=== PATIENT | female | born 1970 | race Caucasian/White ===

== ENCOUNTER 2017-07-19 08:45 | Emergency (ER) | END 2017-07-19 11:25 | disposition home or self-care (01) ==

== ENCOUNTER 2018-09-21 15:43 | Emergency (ER) | payer OTHER ==
[~2018-09-21] VITALS: Wt 83.9 kg
[~2018-09-21 15:43] MED LIST: ACET500C5 PO; BENZ-6 PO; ESOM20CA PO; SODI126M NASAL
[2018-09-21] MEDS ORDERED: KETOROLAC 30 MG INJ IV STA (16:59)
[2018-09-21 18:14] VITALS: BP 146/85; PULSE 90; RESP 18
--- NOTE | 2018-09-21 19:32 | ERD ---
ER Documentation Chief Complaint Chief Complaint JENKINS, anxiety today. worried about daughter w flu-like sx HPI This is a 48-year-old female that has no past medical history. Indicated that she is feeling very anxious and nervous after she received a call from her daughter who stated she was having a difficult time breathing. She medially brought her to the emergency department to be further evaluated. When the patient was here she stated she developed a posterior-like headache. She felt lightheaded and dizzy. She did not express any syncope or near syncope episode. She was also expressing palpitations but stated she had no chest pain or pressure. She denies any recent travel. She denies any neck pain. She states she received annual physical exams by her primary care physician and has no history of hypertension. She does not smoke tobacco. ROS All systems reviewed and are negative except as per history of present illness. Medications Home Meds Discontinued Scripts Benzonatate* (Tessalon Perle*) 100 Mg Capsule, 100 MG PO Q8H PRN for COUGH, #30 CAP Prov:MEKA BROWNE. [employer] SERVICE APPRENTICE 07/19/17 Sodium Chloride (Saline Nasal Mist) 126 Ml Mist, 2 SPRAY NASAL Q2H PRN for NASAL CONGESTION, #1 BOTTLE Prov:MEKA BROWNE. [employer]ERAL SERVICE APPRENTICE 07/19/17 Acetaminophen* (Tylophen*) 500 Mg Capsule, 1 CAP PO Q6H PRN for PAIN AND OR ELEVATED TEMP, #20 CAP Prov:MEKA BROWNE. FUNERAL SERVICE APPRENTICE 10/19/15 Esomeprazole Mag Trihydrate (Nexium) 20 Mg Capsule.dr, 20 MG PO DAILY, #14 CAP Prov:CARLOS MEDINA MD 05/22/15 Allergies Allergies: Coded Allergies: No Known Allergy (Unverified , 09/21/18) PMhx/Soc History of Surgery: Yes (GALLBLADDER REMOVED) Anesthesia Reaction: No Hx Neurological Disorder: No Hx Respiratory Disorders: No Hx Cardiac Disorders: No Hx Psychiatric Problems: No Hx Miscellaneous Medical Probl: No Hx Alcohol Use: No Hx Substance Use: No Hx Tobacco Use: No Smoking Status: Never smoker Physical Exam Vitals Vital Signs Date Temp Pulse Resp B/P (MAP) Pulse Ox O2 O2 Flow FiO2 Time Delivery Rate 09/21/18 90 18 146/85 100 Room Air 18:14 (105) 09/21/18 98.9 72 22 194/100 100 16:00 (131) Physical Exam Constitutional:Well-developed. Well-nourished. HEENT:Normocephalic. Atraumatic.Pupils were equal round reactive to light. Moist mucous membranes.No tonsillar exudates. Otoscopy exam shows sharp optic disks and venous pulsations are present Neck: No nuchal rigidity. No lymphadenopathy. No posterior cervical spine tenderness or step-offs. Respiratory: Not using accessory muscles of respiration.Lungs were clear to auscultation bilaterally. No rhonchi. No rales. No wheezing. Cardiovascular: Regular rate regular rhythm.No murmurs. No rubs were appreciated.S1, S2 normal. Distal pulses are palpable 2+ bilaterally. GI: Abdomen was soft. Nontender. Non Distended. No pulsatile abdominal masses or bruits. No rebound. No guarding. Bowel sounds were present and normal. Muscle skeletal: Full range of motion of both the upper and lower extremities bilaterally.Normal muscle tone.No assymetrical calf tenderness or swelling. Skin: No petechia, no purpura. No lesions on the palms or the soles of the feet. No maculopapular rash. NEURO: Patient was alert, awake, orientated x3.No facial droop. Gait observed and normal with no ataxia.Speech had regular rate and rhythm. No focal neurological deficits. Result Diagram: 09/21/18 1725 09/21/18 1725 Results 24 hrs Laboratory Tests Test 09/21/18 16:42 09/21/18 17:25 POC Beta HCG, Qualitative NEGATIVE White Blood Count 10.4 10^3/ul Red Blood Count 4.40 10^6/ul Hemoglobin 13.1 g/dl Hematocrit 38.7 % Mean Corpuscular Volume 88.0 fl Mean Corpuscular Hemoglobin 29.8 pg Mean Corpuscular Hemoglobin Concent 33.9 g/dl Red Cell Distribution Width 13.2 % Platelet Count 305 10^3/UL Mean Platelet Volume 9.5 fl Immature Granulocytes % 0.500 % Neutrophils % 75.3 % Lymphocytes % 19.0 % Monocytes % 4.4 % Eosinophils % 0.4 % Basophils % 0.4 % Nucleated Red Blood Cells % 0.0 /100WBC Immature Granulocytes # 0.050 10^3/ul Neutrophils # 7.8 10^3/ul Lymphocytes # 2.0 10^3/ul Monocytes # 0.5 10^3/ul Eosinophils # 0.0 10^3/ul Basophils # 0.0 10^3/ul Nucleated Red Blood Cells # 0.0 10^3/ul Prothrombin Time 11.9 Sec Prothrombin Time Ratio 0.9 INR International Normalized Ratio 0.87 Activated Partial Thromboplast Time 28.5 Sec Sodium Level 138 mmol/L Potassium Level 3.5 mmol/L Chloride Level 100 mmol/L Carbon Dioxide Level 26 mmol/L Anion Gap 12 Blood Urea Nitrogen 11 mg/dl Creatinine 0.47 mg/dl Est Glomerular Filtrat Rate mL/min > 60 mL/min Glucose Level 117 mg/dl Calcium Level 10.2 mg/dl Total Bilirubin 0.5 mg/dl Direct Bilirubin 0.00 mg/dl Indirect Bilirubin 0.5 mg/dl Aspartate Amino Transf (AST/SGOT) 22 IU/L Alanine Aminotransferase (ALT/SGPT) 30 IU/L Alkaline Phosphatase 44 IU/L Troponin I < 0.012 ng/ml Total Protein 8.5 g/dl Albumin 4.9 g/dl Globulin 3.60 g/dl Albumin/Globulin Ratio 1.36 Current Medications Medications Dose Sig/Arnaldo Start Time Status Last (Trade) Ordered Route PRN Stop Time Admin Dose Reason Admin Ketorolac 30 mg ONCE STAT 09/21/18 DC 09/21/18 Tromethamine IV 16:59 17:30 (Toradol) 09/21/18 17:03 Procedures/MDM The patient presented to the emergency department with an acute single headache that presented within hours of onset my differential diagnosis included but was not limited to meningitis, SAH, intracerebral hemorrhage, hypertensive encephalopathy, cranial artery dissection, cerebral venous sinus thrombosis, traumatic, acute sinusitis. The patient has no ocular symptoms to suggest temporal neuritis, acute narrow-angle glaucoma or pituitary apoplexy. The patient did not appear to have a toxic or metabolic etiology such as fever, hypoglycemia, high-altitude disease or carbon monoxide poisoning. This was not the patients worse headache of their life. The patient had a complete neurologic and fundoscopic exam performed by myself that was normal with no focal neurological deficits or retinal hemorrhage. The patient stated this headache was not severe or distinct from other headaches and the history with the physical exam findings did not likely suggest SAH. Therefore, I did not feel it was clinically necessary to perform a lumbar puncture and CSF analysis. Did feel the patient's symptoms were more likely resolved of her anxiousness that she was very concerned about her daughter. However the CT scan was performed and there is no intracerebral hemorrhage mass-effect or midline shift. She received Toradol and her headache is completely resolved. She had no electrolyte abnormalities. The patient was hypertensive when she arrived into the emergency department but again it the patient was very anxious. There is no signs of endorgan damage to suggest hypertensive emergency or urgency. Her blood pressure completely resolved without any medication in the emergency department. 12 Lead EKG tracing ordered and reviewed by myself showed: Normal sinus rhythm of 81 bpm and no arrhythmia. OK interval normal. QRS duration normal. No ST segment elevation No ST segment depression. No changes consistent with acute ischemia. The patient was discharged home in fair condition. They were instructed to return to the emergency department at any time if there was any worsening of their condition. The patient stated they would follow up with their PCP in the next 24-48 hours to initiate a suitable medication regimen under the care of their PCP as well as to allow their PCP to monitor any drug reactions. The patient was discharged home with prescriptions after they gave informed consent to the new medication. They were also fully informed by myself on the adverse effects and adverse drug interactions in order to provide adequate safeguards to prevent possible adverse reactions to medications. Departure Diagnosis: Primary Impression: Acute stress reaction Additional Impressions: Headache Headache type: tension-type Headache chronicity pattern: acute headache Intractability: not intractable Qualified Codes: G44.209 - Tension-type headache, unspecified, not intractable Accelerated hypertension Condition: Fair Patient Instructions: Headache, Tension Referrals: DANIELLE BRUCE (PCP) NICK PEREZ MD Sep 21, 2018 19:32
== END 2018-09-21 19:47 | disposition home or self-care (01) ==
LOC: E/R 15:43
DX: G44.209 Tension-type headache, unspecified, not intractable (principal); I10 Essential (primary) hypertension; F43.0 Acute stress reaction
CPT/HCPCS: 36415; 70450; 80053; 81025; 84484; 85025; 85610; 85730; 93005; 96374; J1885; Z7502